=== PATIENT | female | born 2005 | race Hispanic/Latino ===

== ENCOUNTER 2024-09-15 22:51 | Emergency (ER) | payer OTHER, SELFPAY ==
[2024-09-15 22:59] VITALS: BP 122/70; PULSE 87; RESP 17; TEMP 36.7; O2SAT 100; BMI 32.5
--- NOTE | 2024-09-16 00:12 | ED.DENTAL ---
HPI - Dental/Oral General Chief complaint: Dental/Oral Stated complaint: headache x 3 days, toothpain, weakness Time Seen by Provider: 09/16/24 00:08 Source: patient Mode of arrival: Ambulatory History of Present Illness HPI Narrative: Patient is a 19-year-old female without any significant past medical history presenting for evaluation of tooth pain, states this is causing him to have a headache, has been ongoing presents with the past 3 days, patient states she had dental visit and states that she has told that she needs a root canal which is scheduled for Tuesday, however she states that the pain is worse therefore decided come into the ED for further evaluation treatment. Denies any visual disturbances, able to tolerate secretions no voice changes no stridor no trismus Related Data Previous Rx's ?Medication ?Instructions ?Recorded clindamycin HCl 150 mg capsule 450 mg (3 x 150 mg) PO TID 1 week 09/16/24 #63 caps oxycodone-acetaminophen 5 mg-325 1 tab PO Q8H PRN pain 3 days #9 09/16/24 mg tablet (Percocet) tabs Allergies Allergy/AdvReac Type Severity Reaction Status Date / Time Penicillins Allergy Swelling Verified 09/15/24 22:59 of Lip/Tongue/Throat Review of Systems Review of Systems Narrative: General: Denies fever, chills, weight loss HEENT: Positive headache, dental pain, denies eye drainage, eye irritation, head trauma, sore throat, voice change Cardiovascular: Denies any chest pain, palpitations, tachycardia Respiratory: Denies any shortness of breath, cough, wheeze, stridor GI/: Denies any abdominal pain, nausea, vomiting, diarrhea, bright red blood per rectum, melanotic stools, urinary frequency, urinary retention, dysuria, hematuria MSK: Denies any joint pain, muscle pains, swelling Skin: Denies any rashes, lesions, discoloration Neuro: Denies any headache, lightheadedness, dizziness, fainting, weakness Psych: Denies SI/HI Patient History Smoking Status: Never smoker Exam Narrative Exam Narrative: General: Cooperative, well-developed, not in acute distress HEENT: Normocephalic, atraumatic, PERRLA, normal sclera, eyelids normal, posterior oropharynx is clear without any signs of obstruction uvula midline patient is speaking full sentences no voice changes no stridor no trismus no apical abscess noted on exam Neck: Active full range of motion, atraumatic Chest: Normal to inspection, negative crepitus, no overlying erythema ecchymosis Respiratory: Normal respiratory effort, not in acute respiratory distress, clear to auscultation bilaterally negative cough, wheeze, tachypnea, rhonchi, rales Cardiology: Regular rate rhythm negative gallop, murmur, rubs GI/: No tenderness to palpation, soft, non rigid, normal to inspection, exam deferred MSK: Full active range of motion in all 4 extremities, atraumatic, no tenderness to palpation of any bony prominences Skin: No rashes or lesions noted Neuro: Alert awake oriented x3, moves all 4 extremities spontaneously, cranial nerves intact, able to answer all questions appropriately follows commands appropriately Psych: Cooperative, negative suicidal or homicidal ideations Initial Vital Signs Initial Vital Signs: Vital Signs Temperature 98.1 F 09/15/24 22:59 Pulse Rate 87 09/15/24 22:59 Respiratory Rate 17 09/15/24 22:59 Blood Pressure 122/70 09/15/24 22:59 Pulse Oximetry 100 09/15/24 22:59 Oxygen Delivery Method Room Air 09/15/24 22:59 Course Vital Signs Vital signs: Vital Signs - 8 hr 09/15/24 22:59 Temperature 98.1 F Pulse Rate 87 Respiratory Rate 17 Blood Pressure 122/70 Pulse Oximetry 100 Oxygen Delivery Method Room Air MDM - Dental/Oral Differential Diagnosis Differential diagnosis: Likely dental caries, toothache and other (Headache) MDM Narrative Medical decision making narrative: 19-year-old female presenting for dental pain with concurrent headache, states that she has been having issues with a molar tooth over the past 3 days does have a root canal scheduled on Tuesday but states that the pain is unbearable and therefore decided come into the ED for further evaluation treatment on exam no significant dental caries noted however will cover for possible dental abscess, no periapical abscess noted, patient was instructed to follow up with her dentist and her PCP in outpatient setting on exam patient is nontoxic able to speak in full sentences protecting airway uvula midline no voice changes no stridor no trismus patient was given strict return precautions she verbalized understanding of this and agrees to being discharged home with outpatient follow up Discharge Plan Departure Patient Disposition: Home Clinical Impression: Pain, dental Instructions: DI for Dental Pain Activity Restrictions/Additional Instructions: Please follow up with your dentist for your scheduled appointment, Please follow up with the primary care doctor Please read the discharge instructions sheet carefully and bring all papers to all doctor follow-up visits, as it may contain information that your doctor may want to see. Disease processes change and evolve, if your symptoms worsen or if you develop any new symptoms that are concerning to you please return for evaluation. Your evaluation today does not show any evidence of any life-threatening/serious illnesses requiring admission to the hospital or surgery. Please follow-up with your doctor for re-evaluation in approximately 1 day. Seek immediate medical attention for any worrisome symptoms. *If you do not have a primary care provider please contact the [facility] Resource line at [phone]. They will ask some questions about your medical history and help get you set up with a doctor in the community. Prescriptions: New clindamycin HCl 150 mg capsule 450 mg PO TID 7 Days Qty: 63 0RF oxycodone-acetaminophen [Percocet] 5-325 mg tablet 1 tab PO Q8H PRN (Reason: pain) 3 Days Qty: 9 0RF Stand Alone Forms: Patient Portal/API
[2024-09-16] MEDS: CLINDAMYCIN 150 MG CAPSULE 450 MG PO (00:30)
[2024-09-16] MEDS: OXYCODONE/APAP 5/325 PREPACK 1 BOTTLE MISC (00:30)
[2024-09-16 00:38] VITALS: BP 112/68; PULSE 78; RESP 16; O2SAT 96
== END 2024-09-16 00:39 | disposition home or self-care (01) ==
PROVIDERS: Emergency Provider Student in an Organized Health Care Education/Training Program
DX: K08.89 Other specified disorders of teeth and supporting structures (principal); R51.9 Headache, unspecified
CPT/HCPCS: 99283